=== PATIENT | male | born 1935 | race Caucasian/White ===

== ENCOUNTER 2020-05-29 15:49 | Inpatient (IN) | payer MEDICARE ==
[~2020-05-29] VITALS: Ht 175.3 cm; Wt 67.0 kg
--- NOTE | 2020-05-29 16:04 | NUR ---
PIYUSH CAREFLIGHT FROM [facility]. PT WAS SENT TO HOSPITAL FOR RED, WARM, TENDER R SCROTAL MASS. PT FOUND TO HAVE INGUINAL HERNIA THAT COULD NOT BE REDUCED, CT SCAN ABD W/ CONTRAST SHOWED POSSIBLE ABCESS, NEOPLASM, COMPLICATED APPENDICITIS AND SURG CONSULT RECOMMENDED. WBC 20.6, LA 1.73, ELEVATED D DIMER CTA NEG FOR PE. WAS GIVEN GENTAMYCIN, AMPICILLIN AND DILAUDID AT OUTLYING FACILITY. MONITORS APPLIED. WARM BLANKET PROVIDED. NADN. DAMON.
--- NOTE | 2020-05-29 16:08 | NUR ---
PER CAREFLIGHT PT STATED HE HAD ATTEMPED TO HANG HIMSELF 3 DAYS AGO BECAUSE HE WAS TIRED OF LIVING. SPOKE W/ PT IN REGARDS TO THIS. STATES "YES I TRIED TO HANG MYSELF". PT THEN LOOKED AWAY AND STOPPED TALKING. BENY, DYE EXPERT NOTIFIED OF NEED FOR SITTER.
--- NOTE | 2020-05-29 16:15 | NUR ---
human resources manager manufacturing note: Tech sent to bedside as sitter.
--- NOTE | 2020-05-29 16:59 | NUR ---
BRANDON, PSYCH DERMATOLOGY PHYSICIAN AWARE OF PT. PT TO GO TO SURGERY. DERMATOLOGY PHYSICIAN TO ASSESS PT ONCE MEDICALLY STABLE. PT TO BE PLACED ON LEGAL HOLD AT THIS TIME BY ERP DR. RAMSEY.
--- NOTE | 2020-05-29 17:05 | NUR ---
PT RESTING ON LIANA. RYDER. ESTELAS. SITTER REMAINS AT BEDSIDE.
--- NOTE | 2020-05-29 18:22 | NUR ---
PT SLEEPING ON GURTINY. RYDER. VSS. SITTER REMAINS AT BEDSIDE.
--- NOTE | 2020-05-29 19:19 | NUR ---
REPORT GIVEN TO KING HERNANDEZ RN. ALL QUESTIONS ANSWERED. AWAITING PT TRANSPORT.
[2020-05-29 19:40] VITALS: BP 120/68
[2020-05-29] MEDS ORDERED: DOCUSATE 100 MG CAPSULE PO PRN (20:30)
[2020-05-29 20:41] VITALS: BP 120/68
[2020-05-30] MEDS: LACTATED RINGERS 1,000 ML IV SCH ×2 (00:45→15:19)
[2020-05-30] MEDS: PIPERACILLIN/TAZO/PMX 3.375GM 50 ML IV SCH ×3 (00:46→12:17)
[2020-05-30] MEDS: KETOROLAC 30 MG/1 ML IV PRN ×3 (00:57→16:44)
[2020-05-30] MEDS: morphine SULFATE 10 MG/ML, 1ML IVPush PRN ×2 (00:57→04:16)
[2020-05-30] MEDS: OXYcodone IR 5MG TABLET PO PRN ×2 (00:58→09:21)
[2020-05-30 01:10] VITALS: BP 115/69
[2020-05-30 05:41] LABS: BASOPHILS % (AUTO) 0 % (0-1); EOSINOPHILS % (AUTO) 0 % (1-7); LYMPHOCYTES % (AUTO) 9 % (22-44); MEAN CORPUSCULAR HEMOGLOBIN 33.1 pg (27.5-34.5); MEAN CORPUSCULAR HGB CONC 33.7 g/dL (33.2-36.2); MEAN PLATELET VOLUME 7.5 fL (7.4-10.4); MONOCYTES % (AUTO) 7 % (2-9); NEUTROPHILS % (AUTO) 83 % (42-75); PLATELET COUNT 591 x10^3/uL (130-400); RED BLOOD COUNT 3.74 x10^6/uL (4.38-5.82); RED CELL DISTRIBUTION WIDTH 13.7 % (9.4-14.8)
[2020-05-30 05:44] LABS: ANION GAP 6 mmol/L (5-15); CALCIUM 9.2 mg/dL (8.5-10.1); CHLORIDE 107 mmol/L (98-107)
[2020-05-30 05:57] LABS: CHOL/HDL RATIO 6.7; CHOLESTEROL, TOTAL 140 mg/dL (140-239); CREATININE 0.75 mg/dL (0.7-1.3); HDL CHOL % 15 % (26-37); HDL CHOLESTEROL (DIRECT) 21 mg/dL (40-60); LDL CHOLESTEROL,CALCULATED 99 mg/dL (54-169); LDL/HDL RATIO 4.7 (0.5-3.0); TRIGLYCERIDES 100 mg/dL (50-200); VLDL CHOLESTEROL 20 mg/dL (0-25)
[2020-05-30 07:00] VITALS: BP 101/66
[2020-05-30 07:21] LABS: MD SCAN
[2020-05-30 13:14] VITALS: BP 109/62
[2020-05-30] MEDS: PIPERACILLIN/TAZO 3.375 GM in SODIUM CHLORIDE 0.9% 100 ML IV SCH ×2 (18:26→23:59)
[2020-05-30 20:01] VITALS: BP 121/72
[2020-05-30] MEDS: ONDANSETRON 2MG/ML, 2ML IVPush PRN (20:13)
[2020-05-31] MEDS: KETOROLAC 30 MG/1 ML IV PRN ×2 (02:18→11:54)
[2020-05-31] MEDS: MELATONIN 5 MG TABLET PO PRN (02:18)
[2020-05-31 02:21] VITALS: BP 115/66
[2020-05-31 05:31] LABS: CHLORIDE 105 mmol/L (98-107)
[2020-05-31 05:36] LABS: ANION GAP 7 mmol/L (5-15); CALCIUM 8.7 mg/dL (8.5-10.1); CREATININE 0.69 mg/dL (0.7-1.3)
[2020-05-31 05:43] LABS: BASOPHILS % (AUTO) 1 % (0-1); EOSINOPHILS % (AUTO) 3 % (1-7); LYMPHOCYTES % (AUTO) 15 % (22-44); MEAN CORPUSCULAR HEMOGLOBIN 33.1 pg (27.5-34.5); MEAN CORPUSCULAR HGB CONC 33.8 g/dL (33.2-36.2); MEAN PLATELET VOLUME 7.2 fL (7.4-10.4); MONOCYTES % (AUTO) 7 % (2-9); NEUTROPHILS % (AUTO) 75 % (42-75); PLATELET COUNT 535 x10^3/uL (130-400); RED BLOOD COUNT 3.59 x10^6/uL (4.38-5.82); RED CELL DISTRIBUTION WIDTH 14.2 % (9.4-14.8)
[2020-05-31] MEDS: PIPERACILLIN/TAZO 3.375 GM in SODIUM CHLORIDE 0.9% 100 ML IV SCH ×4 (05:46→23:39)
[2020-05-31] MEDS: LACTATED RINGERS 1,000 ML IV SCH ×2 (05:47→19:07)
[2020-05-31 06:07] LABS: MD NO
[2020-05-31 08:15] VITALS: BP 114/68
[2020-05-31] MEDS ORDERED: GOLYTELY 4,000ML ORAL.SOL PO ONE (09:00)
[2020-05-31 14:40] VITALS: BP 117/75
[2020-05-31] MEDS: OXYcodone IR 5MG TABLET PO PRN (15:39)
[2020-05-31 18:50] VITALS: BP 105/66
[2020-06-01 00:57] VITALS: BP 130/70
[2020-06-01 04:34] LABS: BASOPHILS % (AUTO) 1 % (0-1); EOSINOPHILS % (AUTO) 2 % (1-7); LYMPHOCYTES % (AUTO) 17 % (22-44); MEAN CORPUSCULAR HEMOGLOBIN 33.2 pg (27.5-34.5); MEAN CORPUSCULAR HGB CONC 34.1 g/dL (33.2-36.2); MEAN PLATELET VOLUME 6.8 fL (7.4-10.4); MONOCYTES % (AUTO) 7 % (2-9); NEUTROPHILS % (AUTO) 73 % (42-75); PLATELET COUNT 567 x10^3/uL (130-400); RED BLOOD COUNT 3.87 x10^6/uL (4.38-5.82); RED CELL DISTRIBUTION WIDTH 13.9 % (9.4-14.8)
[2020-06-01 04:35] LABS: MD NO
[2020-06-01 04:46] LABS: ANION GAP 9 mmol/L (5-15); CALCIUM 8.8 mg/dL (8.5-10.1); CHLORIDE 105 mmol/L (98-107); CREATININE 0.66 mg/dL (0.7-1.3)
[2020-06-01] MEDS: PIPERACILLIN/TAZO 3.375 GM in SODIUM CHLORIDE 0.9% 100 ML IV SCH ×4 (05:39→23:44)
[2020-06-01 08:15] VITALS: BP 123/76
[2020-06-01] MEDS: LACTATED RINGERS 1,000 ML IV SCH (10:28)
[2020-06-01 12:19] VITALS: BP 133/74
[2020-06-01] MEDS ORDERED: CHLORHEXIDINE 15 ML UDC ONE (12:24)
[2020-06-01] MEDS ORDERED: CHLORHEXIDINE 15 ML UDC MM ONE (12:30)
[2020-06-01] MEDS ORDERED: PROPOFOL 10 MG/ML, 20ML ONE (13:50)
[2020-06-01 18:27] VITALS: BP 125/74
[2020-06-02 01:11] VITALS: BP 142/65
[2020-06-02 05:09] LABS: BASOPHILS % (AUTO) 1 % (0-1); EOSINOPHILS % (AUTO) 3 % (1-7); LYMPHOCYTES % (AUTO) 19 % (22-44); MEAN CORPUSCULAR HEMOGLOBIN 33.2 pg (27.5-34.5); MEAN CORPUSCULAR HGB CONC 34.1 g/dL (33.2-36.2); MEAN PLATELET VOLUME 6.8 fL (7.4-10.4); MONOCYTES % (AUTO) 7 % (2-9); NEUTROPHILS % (AUTO) 70 % (42-75); PLATELET COUNT 593 x10^3/uL (130-400); RED BLOOD COUNT 3.94 x10^6/uL (4.38-5.82); RED CELL DISTRIBUTION WIDTH 13.8 % (9.4-14.8)
[2020-06-02 05:10] LABS: MD NO
[2020-06-02 05:19] LABS: ANION GAP 13 mmol/L (5-15); CALCIUM 8.2 mg/dL (8.5-10.1); CHLORIDE 107 mmol/L (98-107)
[2020-06-02 05:20] LABS: CREATININE 0.47 mg/dL (0.7-1.3)
[2020-06-02] MEDS: OXYcodone IR 5MG TABLET PO PRN ×3 (05:43→22:31)
[2020-06-02] MEDS: PIPERACILLIN/TAZO 3.375 GM in SODIUM CHLORIDE 0.9% 100 ML IV SCH ×3 (05:43→18:00)
[2020-06-02] MEDS: LACTATED RINGERS 1,000 ML IV SCH (05:44)
[2020-06-02] MEDS: D5%-LACTATED RINGERS 1,000 ML IV SCH ×2 (06:40→22:31)
[2020-06-02 09:59] VITALS: BP 148/76
[2020-06-02 15:59] VITALS: BP 144/77
[2020-06-02 18:36] VITALS: BP 142/77
[2020-06-03 00:27] VITALS: BP 133/73
[2020-06-03] MEDS: PIPERACILLIN/TAZO 3.375 GM in SODIUM CHLORIDE 0.9% 100 ML IV SCH ×2 (04:42)
[2020-06-03 05:35] LABS: BASOPHILS % (AUTO) 1 % (0-1); EOSINOPHILS % (AUTO) 3 % (1-7); LYMPHOCYTES % (AUTO) 22 % (22-44); MEAN CORPUSCULAR HEMOGLOBIN 32.8 pg (27.5-34.5); MEAN CORPUSCULAR HGB CONC 33.8 g/dL (33.2-36.2); MEAN PLATELET VOLUME 7.1 fL (7.4-10.4); MONOCYTES % (AUTO) 9 % (2-9); NEUTROPHILS % (AUTO) 66 % (42-75); PLATELET COUNT 590 x10^3/uL (130-400); RED BLOOD COUNT 3.99 x10^6/uL (4.38-5.82); RED CELL DISTRIBUTION WIDTH 13.6 % (9.4-14.8)
[2020-06-03 05:40] LABS: MD NO
[2020-06-03 05:50] LABS: ANION GAP 9 mmol/L (5-15); CALCIUM 8.2 mg/dL (8.5-10.1); CHLORIDE 107 mmol/L (98-107); CREATININE 0.56 mg/dL (0.7-1.3)
[2020-06-03] MEDS: OXYcodone IR 5MG TABLET PO PRN ×3 (07:57→21:21)
[2020-06-03 08:10] VITALS: BP 152/82
[2020-06-03] MEDS: D5%-LACTATED RINGERS 1,000 ML IV SCH ×2 (09:10→21:18)
[2020-06-03] MEDS ORDERED: PIPERACILLIN/TAZO/PMX 3.375GM 50 ML IV SCH (12:00)
[2020-06-03] MEDS: metroNIDAZOLE 500 MG TABLET PO SCH ×3 (15:00→23:06)
[2020-06-03 18:33] VITALS: BP 141/81
[2020-06-04 00:08] VITALS: BP 137/72
[2020-06-04] MEDS: metroNIDAZOLE 500 MG TABLET PO SCH (06:21)
[2020-06-04 06:59] VITALS: BP 144/76
[2020-06-04] MEDS: D5%-LACTATED RINGERS 1,000 ML IV SCH (09:36)
[2020-06-04] MEDS ORDERED: OMNIPAQUE 350 MG/ML, 100ML BOTTLE ONE (09:58)
[2020-06-04] MEDS: SENNOSIDES 8.6 MG TABLET PO PRN (10:45)
[2020-06-04] MEDS: OXYcodone IR 5MG TABLET PO PRN ×2 (10:45→17:35)
[2020-06-04] MEDS: SIMETHICONE 125 MG CHEW TAB PO SCH ×3 (10:45→20:22)
[2020-06-04] MEDS: PIPERACILLIN/TAZO/PMX 3.375GM 50 ML IV SCH ×2 (13:13→18:32)
[2020-06-04 13:50] VITALS: BP 147/73
[2020-06-04 18:58] VITALS: BP 155/79
[2020-06-04] MEDS: ONDANSETRON 2MG/ML, 2ML IVPush PRN (21:48)
[2020-06-04] MEDS: morphine SULFATE 10 MG/ML, 1ML IVPush PRN (21:56)
[2020-06-04] MEDS: MELATONIN 5 MG TABLET PO PRN (21:56)
[2020-06-05] MEDS: PIPERACILLIN/TAZO/PMX 3.375GM 50 ML IV SCH ×4 (00:54→18:24)
[2020-06-05] MEDS: D5%-LACTATED RINGERS 1,000 ML IV SCH ×2 (00:54→15:41)
[2020-06-05 01:06] VITALS: BP 134/79
[2020-06-05] MEDS: OXYcodone IR 5MG TABLET PO PRN ×3 (04:30→21:55)
[2020-06-05 05:44] LABS: BASOPHILS % (AUTO) 1 % (0-1); EOSINOPHILS % (AUTO) 2 % (1-7); LYMPHOCYTES % (AUTO) 17 % (22-44); MEAN CORPUSCULAR HGB CONC 34.3 g/dL (33.2-36.2); MEAN PLATELET VOLUME 7.1 fL (7.4-10.4); MONOCYTES % (AUTO) 9 % (2-9); NEUTROPHILS % (AUTO) 72 % (42-75); PLATELET COUNT 483 x10^3/uL (130-400); RED BLOOD COUNT 3.96 x10^6/uL (4.38-5.82); RED CELL DISTRIBUTION WIDTH 13.9 % (9.4-14.8)
[2020-06-05 05:49] LABS: MD NO
[2020-06-05 05:56] LABS: ANION GAP 5 mmol/L (5-15); CALCIUM 8.3 mg/dL (8.5-10.1); CHLORIDE 107 mmol/L (98-107); CREATININE 0.53 mg/dL (0.7-1.3)
[2020-06-05] MEDS: SIMETHICONE 125 MG CHEW TAB PO SCH ×4 (07:21→20:44)
[2020-06-05 07:40] VITALS: BP 123/75
[2020-06-05 13:40] VITALS: BP 104/68
[2020-06-05 18:51] VITALS: BP 115/72
[2020-06-05] MEDS: SENNOSIDES 8.6 MG TABLET PO PRN (21:59)
[2020-06-06 00:25] VITALS: BP 118/71
[2020-06-06] MEDS: PIPERACILLIN/TAZO/PMX 3.375GM 50 ML IV SCH ×4 (01:03→18:34)
[2020-06-06] MEDS: D5%-LACTATED RINGERS 1,000 ML IV SCH ×2 (05:20→18:34)
[2020-06-06 06:02] LABS: BASOPHILS % (AUTO) 1 % (0-1); EOSINOPHILS % (AUTO) 2 % (1-7); LYMPHOCYTES % (AUTO) 15 % (22-44); MEAN CORPUSCULAR HEMOGLOBIN 32.9 pg (27.5-34.5); MEAN CORPUSCULAR HGB CONC 34.1 g/dL (33.2-36.2); MEAN PLATELET VOLUME 7.5 fL (7.4-10.4); MONOCYTES % (AUTO) 9 % (2-9); NEUTROPHILS % (AUTO) 73 % (42-75); PLATELET COUNT 467 x10^3/uL (130-400); RED BLOOD COUNT 4.07 x10^6/uL (4.38-5.82); RED CELL DISTRIBUTION WIDTH 14.4 % (9.4-14.8)
[2020-06-06 06:10] LABS: ANION GAP 4 mmol/L (5-15); CALCIUM 8.5 mg/dL (8.5-10.1); CHLORIDE 106 mmol/L (98-107)
[2020-06-06 06:12] LABS: MD NO
[2020-06-06 06:14] LABS: CREATININE 0.69 mg/dL (0.7-1.3)
[2020-06-06] MEDS ORDERED: POTASSIUM CHLORIDE 20 MEQ TAB.ER.PRT PO ONE (06:30)
[2020-06-06] MEDS: SIMETHICONE 125 MG CHEW TAB PO SCH ×4 (06:34→20:13)
[2020-06-06 07:29] VITALS: BP 112/69
[2020-06-06] MEDS: OXYcodone IR 5MG TABLET PO PRN ×2 (08:51→20:14)
[2020-06-06 12:03] VITALS: BP 121/70
[2020-06-06] MEDS: ENOXAPARIN 40 MG/0.4 ML SQ SCH (12:03)
[2020-06-06 19:39] VITALS: BP 115/64
[2020-06-06] MEDS: SENNOSIDES 8.6 MG TABLET PO PRN (20:13)
[2020-06-06] MEDS: MELATONIN 5 MG TABLET PO PRN (20:14)
[2020-06-07] MEDS: PIPERACILLIN/TAZO/PMX 3.375GM 50 ML IV SCH ×3 (00:18→12:51)
[2020-06-07 03:16] VITALS: BP 120/74
[2020-06-07 04:47] LABS: BASOPHILS % (AUTO) 1 % (0-1); EOSINOPHILS % (AUTO) 2 % (1-7); LYMPHOCYTES % (AUTO) 24 % (22-44); MEAN CORPUSCULAR HEMOGLOBIN 32.5 pg (27.5-34.5); MEAN CORPUSCULAR HGB CONC 34.1 g/dL (33.2-36.2); MEAN PLATELET VOLUME 7.4 fL (7.4-10.4); MONOCYTES % (AUTO) 9 % (2-9); NEUTROPHILS % (AUTO) 65 % (42-75); PLATELET COUNT 435 x10^3/uL (130-400); RED BLOOD COUNT 3.66 x10^6/uL (4.38-5.82); RED CELL DISTRIBUTION WIDTH 14.2 % (9.4-14.8)
[2020-06-07 04:52] LABS: MD NO
[2020-06-07] MEDS ORDERED: POTASSIUM CHLORIDE 20 MEQ TAB.ER.PRT PO ONE (06:30)
[2020-06-07] MEDS ORDERED: POTASSIUM CHLORIDE 20 MEQ in SODIUM CHLORIDE 0.9% 250 ML IV ONE (06:30)
[2020-06-07] MEDS: SIMETHICONE 125 MG CHEW TAB PO SCH ×4 (06:50→22:00)
[2020-06-07] MEDS: OXYcodone IR 5MG TABLET PO PRN ×2 (06:54→22:01)
[2020-06-07 07:15] VITALS: BP 121/79
[2020-06-07] MEDS: D5%-LACTATED RINGERS 1,000 ML IV SCH (08:05)
[2020-06-07] MEDS: ENOXAPARIN 40 MG/0.4 ML SQ SCH (11:27)
[2020-06-07 14:05] VITALS: BP 130/79
[2020-06-07] MEDS: AMOXICILLIN/CLAV 875-125MG TABLET PO SCH ×2 (16:08→22:00)
[2020-06-07 19:10] VITALS: BP 144/88
[2020-06-07] MEDS: MELATONIN 5 MG TABLET PO PRN (22:00)
[2020-06-08 00:34] VITALS: BP 151/81
[2020-06-08] MEDS: D5%-LACTATED RINGERS 1,000 ML IV SCH ×2 (00:46→12:28)
[2020-06-08 05:31] LABS: BASOPHILS % (AUTO) 1 % (0-1); EOSINOPHILS % (AUTO) 3 % (1-7); LYMPHOCYTES % (AUTO) 27 % (22-44); MEAN CORPUSCULAR HEMOGLOBIN 32.5 pg (27.5-34.5); MEAN CORPUSCULAR HGB CONC 33.9 g/dL (33.2-36.2); MEAN PLATELET VOLUME 7.4 fL (7.4-10.4); MONOCYTES % (AUTO) 11 % (2-9); NEUTROPHILS % (AUTO) 58 % (42-75); PLATELET COUNT 447 x10^3/uL (130-400); RED BLOOD COUNT 3.91 x10^6/uL (4.38-5.82); RED CELL DISTRIBUTION WIDTH 14.2 % (9.4-14.8)
[2020-06-08 05:33] LABS: MD NO
[2020-06-08 05:46] LABS: ANION GAP 2 mmol/L (5-15); CALCIUM 8.7 mg/dL (8.5-10.1); CHLORIDE 111 mmol/L (98-107); CREATININE 0.72 mg/dL (0.7-1.3)
[2020-06-08] MEDS: SIMETHICONE 125 MG CHEW TAB PO SCH ×3 (06:21→16:27)
[2020-06-08 08:20] VITALS: BP 143/74
[2020-06-08] MEDS: ONDANSETRON 2MG/ML, 2ML IVPush PRN (08:28)
[2020-06-08] MEDS: AMOXICILLIN/CLAV 875-125MG TABLET PO SCH ×2 (08:28→16:27)
[2020-06-08] MEDS ORDERED: AMOX1TAB12 PO (11:19)
[2020-06-08] MEDS ORDERED: OXYC5TAB98 PO (11:19)
[2020-06-08] MEDS ORDERED: ENOX40SY4 SQ (11:19)
[2020-06-08] MEDS ORDERED: DOCU-131 PO (11:19)
[2020-06-08] MEDS ORDERED: SIME125T PO (11:19)
[2020-06-08] MEDS: ENOXAPARIN 40 MG/0.4 ML SQ SCH (12:27)
[2020-06-08 14:25] VITALS: BP 131/76
[2020-06-08 17:00] VITALS: BP 122/79
== END 2020-06-08 18:07 | DRG 371 ==
LOC: ED 17:48 → EDIP 18:04 → 4NE 19:28
PROVIDERS: ADMIT Hospitalist; ATTEND Internal Medicine
PROC: 0DBK8ZX Excision of Ascending Colon, Via Natural or Artificial Opening Endoscopic, Diagnostic (ICD-10-PCS; 2020-06-01)
PROC: 0DBL8ZZ Excision of Transverse Colon, Via Natural or Artificial Opening Endoscopic (ICD-10-PCS; principal; 2020-06-01 13:30)
DX: K35.33 Acute appendicitis with perforation, localized peritonitis, and gangrene, with abscess (principal); E43 Unspecified severe protein-calorie malnutrition; R45.851 Suicidal ideations; F17.203 Nicotine dependence unspecified, with withdrawal; K57.30 Diverticulosis of large intestine without perforation or abscess without bleeding; K63.9 Disease of intestine, unspecified; F43.20 Adjustment disorder, unspecified; H91.90 Unspecified hearing loss, unspecified ear; J43.9 Emphysema, unspecified; K40.90 Unilateral inguinal hernia, without obstruction or gangrene, not specified as recurrent; K52.9 Noninfective gastroenteritis and colitis, unspecified; Z66 Do not resuscitate; R30.0 Dysuria; R31.9 Hematuria, unspecified; D72.829 Elevated white blood cell count, unspecified; R33.9 Retention of urine, unspecified; Z20.822 Contact with and (suspected) exposure to COVID-19; Z82.0 Family history of epilepsy and other diseases of the nervous system
CPT/HCPCS: 36415; 74177; 80048; 80061; 82378; 83036; 83735; 84100; 84443; 85014; 85018; 85025; 86480; 87635; 88305; 93005; 99285; G0378; J1650; J1885; J2405; J2543; J2704; J3480; Q9967; J2270; J7050; J7120; J7121

== ENCOUNTER → 2020-06-23 | Outpatient (CLI) | payer SELFPAY ==
[~2020-06-23] MED LIST: AMOX1TAB12 PO; DOCU-131 PO; ENOX40SY4 SQ; OMNIPAQUE 350 MG/ML, 100ML BOTTLE ONE; OXYC5TAB98 PO; SIME125T PO
== END | disposition home or self-care (01) ==
LOC: CFH 14:32
PROVIDERS: ATTEND Surgery
DX: K40.90 Unilateral inguinal hernia, without obstruction or gangrene, not specified as recurrent (principal); K63.0 Abscess of intestine; N28.1 Cyst of kidney, acquired
CPT/HCPCS: 74177; Q9967